=== PATIENT | male | born 1980 | race Hispanic/Latino ===

== ENCOUNTER 2016-08-25 23:56 | Emergency (ER) | payer OTHER ==
[~2016-08-25] VITALS: Ht 167.6 cm; Wt 81.6 kg
[2016-08-25 23:58] VITALS: BP 138/85
--- NOTE | 2016-08-26 00:01 | ED CARDIAC/CP/PALPITATIONS ---
History of Present Illness General Chief Complaint: Chest Pain Stated Complaint: CP X3 DAYS Source: patient Exam Limitations: no limitations Vital Signs & Intake/Output Vital Signs & Intake/Output Vital Signs Date Time Temp Pulse Resp B/P Pulse O2 O2 Flow FiO2 Ox Delivery Rate 08/26 0043 97.3 08/26 0009 97 Room Air 08/25 2358 97.3 91 18 138/85 97 Room Air Allergies Coded Allergies: No Known Allergies (08/26/16) Reconcile Medications Amoxicillin/Potassium Clav (Augmentin 875-125 Tablet) 875 MG-125 MG TABLET 1 TAB PO BID bronchitis Triage Nurses Notes Reviewed? yes Onset: Gradual Duration: day(s): Timing: recent history Location: central Radiation: no radiation Activities at Onset: none Prior Chest Pain/Card Workup: no prior chest pain Modifying Factors: Worsens With: palpation. Associated Symptoms: cough with phlegm HPI: 36-year-old gentleman in prior good health presents with 3 day history of chest discomfort, cough, phlegm. He notes that he has been drinking alcohol heavily in recent days. His chest pain is nonradiating. He has no dizziness diaphoresis or syncopal type symptoms. Past History Medical History Any Pertinent Medical History? none Surgical History Surgical History: none Family History Hx Contributory? No Review of Systems Review of Systems Constitutional: Reports: no symptoms. EENTM: Reports: no symptoms. Respiratory: Reports: no symptoms. Cardiovascular: Reports: no symptoms. GI: Reports: no symptoms. Genitourinary: Reports: no symptoms. Musculoskeletal: Reports: no symptoms. Skin: Reports: no symptoms. Neurological/Psychological: Reports: no symptoms. Hematologic/Endocrine: Reports: no symptoms. Immunologic/Allergic: Reports: no symptoms. All Other Systems: Reviewed and Negative Physical Exam Physical Exam General Appearance: well developed/nourished, mild distress Head: atraumatic, normal appearance Eyes: Bilateral: normal appearance. Ears, Nose, Throat: normal pharynx, normal ENT inspection Neck: normal inspection, supple, full range of motion Respiratory: normal breath sounds, para sternal chest wall tenderness to palpation Cardiovascular: regular rate/rhythm Gastrointestinal: normal bowel sounds, soft, non-tender, no organomegaly Back: normal inspection, normal range of motion Extremities: normal inspection, normal capillary refill, normal range of motion, no edema Neurologic/Psych: no motor/sensory deficits, awake, alert, oriented x 3 Skin: intact, normal color, warm/dry Core Measures ACS in differential dx? No Severe Sepsis Present: No Septic Shock Present: No Progress Differential Diagnosis: bronchitis versus pneumonia versus costochondritis. I doubt myocardial infarction or unstable angina or PE. Plan of Care: Orders Procedure Date/time Status TROPONIN LEVEL 08/26 2016 Complete ETHANOL 08/26 2016 Complete COMPREHENSIVE METABOLIC PANEL 08/26 2016 Complete CBC WITHOUT DIFFERENTIAL 08/26 2016 Complete EKG 08/26 Active Current Medications Sig/Camille Start time Last Medication Dose Stop Time Status Admin Famotidine 20 MG ONCE ONE 08/26 14 CAN (Pepcid) 08/27 15 Ketorolac 30 MG ONCE ONE 08/26 14 CAN Tromethamine 08/27 15 (Toradol) Laboratory Tests 08/26/16 0031: Anion Gap 18 H, Estimated GFR > 60, BUN/Creatinine Ratio 14.4, Glucose 88, Calcium 9.7, Total Bilirubin 0.9, AST 128 H, ALT 116 H, Alkaline Phosphatase 76, Troponin I < 0.01, Total Protein 8.2, Albumin 4.8, Globulin 3.4, Albumin/ Globulin Ratio 1.4, CBC w Diff NO MAN DIFF REQ, RBC 5.31, MCV 93.8, MCH 32.3 H, RDW 12.9, MPV 7.4, Gran % 52.5, Lymphocytes % 33.9, Monocytes % 5.5, Eosinophils % 6.9 H, Basophils % 1.2, Absolute Granulocytes 4.4, Absolute Lymphocytes 2.9, Absolute Monocytes 0.5, Absolute Eosinophils 0.6, Absolute Basophils 0.1, PUBS MCHC 34.4, Serum Alcohol 295.0 08/26/16 0003: Serum Alcohol Cancelled Diagnostic Imaging: Viewed by Me: Radiology Read. Discussed w/RAD: Radiology Read. CXR Impression: atelectasis vs infiltrate... full report below. Initial ED EKG: normal axis, normal intervals, normal p-waves, normal QRS complex, normal sinus rhythm Comments: PATIENT: OLIVER BLACKBURN PRESENT AGE: 36 PATIENT ACCOUNT NO: [id number] : 78 LOCATION: [facility] ORDERING PHYSICIAN: CAREY DEE MD SERVICE DATE: 08/26/16 EXAM TYPE: RAD - XRY-PORTABLE CHEST XRAY EXAMINATION: XR PORTABLE CHEST CLINICAL INFORMATION: Chest pain COMPARISON: None TECHNIQUE: Portable AP view of the chest was obtained. FINDINGS: Low lung volumes. Hazy left basilar opacity. No edema or effusion. No pneumothorax. The cardiomediastinal silhouette is within normal limits. No acute osseous abnormality. IMPRESSION: Low lung volumes with hazy left basilar opacity which could represent atelectasis or pneumonia. DICTATED BY: WEN RAI MD DATE/TIME DICTATED:08/26/1637 PROGRESS CLERK:DENNIS DATE/TIME TRANSCRIBED:08/26/1637 CONFIDENTIAL, DO NOT COPY WITHOUT APPROPRIATE AUTHORIZATION. <Electronically signed in Other Vendor System> SIGNED BY: CECELIA HAWKINS,WEN 08/26 0041 Departure Departure Disposition: HOME OR SELF CARE Condition: Stable Clinical Impression Primary Impression: Bronchitis Secondary Impressions: Alcohol intoxication Referrals: TORY BARRETO APRN (PCP/Family) Departure Forms: Customer Survey General Discharge Information Prescriptions: Current Visit Scripts Amoxicillin/Potassium Clav (Augmentin 875-125 Tablet) 1 TAB PO BID #20 TAB Comments pt resting comfortably at discharge... home with friend... encouraged closef ollow up. Critical Care Note Critical Care Note Critical Care Time: non-applicable
[2016-08-26 00:40] LABS: ABSOLUTE BASOPHIL COUNT 0.1 /CUMM (0.0-0.2); ABSOLUTE EOSINOPHIL COUNT 0.6 /CUMM (0.0-0.7); ABSOLUTE GRANULOCYTE CT 4.4 /CUMM (1.4-6.5); ABSOLUTE LYMPH COUNT 2.9 /CUMM (1.2-3.4); ABSOLUTE MONOCYTE COUNT 0.5 /CUMM (0.10-0.60); BASOPHIL % 1.2 % (0.0-2.0); EOSINOPHIL % 6.9 % (0-5); GRANULOCYTE % 52.5 % (42.2-75.2); HEMATOCRIT 49.8 % (42-52); MEAN CORPUSCULAR HGB 32.3 PG (27.0-31.0); MEAN CORPUSCULAR HGB CONC 34.4 G/DL (33.0-37.0); MEAN CORPUSCULAR VOLUME 93.8 FL (80.0-94.0); MEAN PLATELET VOLUME 7.4 FL (7.4-10.4); PLATELET COUNT 232 /CUMM (130-400); RBC DISTRIBUTION WIDTH 12.9 % (11.5-14.5); RED BLOOD CELL CT 5.31 /CUMM (4.70-6.10); WHITE BLOOD CELL COUNT 8.5 /CUMM (4.8-10.8)
--- NOTE | 2016-08-26 00:41 | RADIOLOGY REPORT ---
EXAMINATION: XR PORTABLE CHEST CLINICAL INFORMATION: Chest pain COMPARISON: None TECHNIQUE: Portable AP view of the chest was obtained. FINDINGS: Low lung volumes. Hazy left basilar opacity. No edema or effusion. No pneumothorax. The cardiomediastinal silhouette is within normal limits. No acute osseous abnormality. IMPRESSION: Low lung volumes with hazy left basilar opacity which could represent atelectasis or pneumonia.
[2016-08-26] MEDS ORDERED: AUGMENTIN 875-1 EACH PO (01:29)
== END 2016-08-26 01:50 ==
LOC: ERH 23:56
PROVIDERS: Pediatrics
DX: R07.89 Other chest pain (principal); J40 Bronchitis, not specified as acute or chronic; F10.129 Alcohol abuse with intoxication, unspecified
CPT/HCPCS: 93005; 93010; G0480